=== PATIENT | male | born 1980 | race African-American/Black ===

== ENCOUNTER 2016-06-04 03:14 | Emergency (ER) | payer OTHER ==
[2016-06-04 03:28] VITALS: BP 128/66; PULSE 116; TEMP 98.6; BMI 27.1
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
[2016-06-04] MEDS ORDERED: SODIUM CHLORIDE 1,000 ML IV STA (03:30)
[2016-06-04] MEDS ORDERED: TETANUS AND DIPHTHERIA TOXOID 0.5 ML DISP.SYRIN IM ONE (03:38)
[2016-06-04 03:41] LABS: BASOPHIL 0.3 % (0-2.0); EOSINOPHIL 0.7 % (0-4.5); MCH 30.5 pg (25.7-33.7); MCHC 32.5 g/dl (32.0-35.9); MEAN CELL VOLUME 93.7 fl (80-96); NEUTROPHILS 60.5 % (42.8-82.8); PLATELET COUNT 305 K/MM3 (134-434); RDW 12.6 % (11.9-15.9); WHITE BLOOD COUNT 11.7 K/mm3 (4.0-10.0)
[2016-06-04 04:09] LABS: ALBUMIN 4.2 g/dl (3.4-5.0); BILIRUBIN,TOTAL 0.4 mg/dL (0.2-1.0); CALCIUM 8.6 mg/dL (8.5-10.1); CREATININE 1.4 mg/dL (0.7-1.3); TOT PROT 7.8 g/dl (6.4-8.2)
== END 2016-06-04 06:49 | disposition home or self-care (01) ==
LOC: JER 03:14 → SUPCPDRO 03:14 → JER 06:49
PROC: 3E0234Z Introduction of Serum, Toxoid and Vaccine into Muscle, Percutaneous Approach (ICD-10-PCS; principal; 2016-06-04)
PROC: 3E0337Z Introduction of Electrolytic and Water Balance Substance into Peripheral Vein, Percutaneous Approach (ICD-10-PCS; 2016-06-04)
DX: S81.802A Unspecified open wound, left lower leg, initial encounter (principal); W34.00XA Accidental discharge from unspecified firearms or gun, initial encounter; Y93.89 Activity, other specified; Y92.414 Local residential or business street as the place of occurrence of the external cause; Y99.9 Unspecified external cause status
CPT/HCPCS: 36415; 73552-TC-LT; 73560-TC-LT; 73590-TC-LT; 80053; 85025; 99285-25; G0479